=== PATIENT | male | born 1990 | race Caucasian/White ===

== ENCOUNTER → 2023-12-24 06:45 | Outpatient (REF) | payer OTHER, SELFPAY | LOC: PAVMRI 06:45 | PROVIDERS: ATTENDING PHYSICIAN Orthopaedic Surgery | DX: S83.242A Other tear of medial meniscus, current injury, left knee, initial encounter (principal) | CPT/HCPCS: 73721 ==

== ENCOUNTER → 2024-12-02 14:01 | Outpatient (REF) | payer OTHER, SELFPAY | LOC: HWRAD 14:01 | PROVIDERS: ATTENDING PHYSICIAN Internal Medicine Critical Care Medicine; FAMILY PHYSICIAN Physician Assistant Medical | DX: J45.991 Cough variant asthma (principal); R05.3 Chronic cough | CPT/HCPCS: 71046 ==

== ENCOUNTER → 2024-12-03 10:18 | Outpatient (REF) | payer OTHER, SELFPAY ==
[2024-12-03 11:41] LABS: % Basophils 0.8 % (0-2); % Eosinophils 6.8 % (0-6); % Immature Granulocytes 0.2 % (0-0.5); % Lymphocytes 48.5 % (20.5-51.1); % Monocytes 8.4 % (1.7-9.3); % Neutrophils 35.3 % (42.2-75.2); Absolute Basophils 0.1 10^3/uL (0-0.2); Absolute Eosinophils 0.4 10^3/uL (0-0.7); Absolute Monocytes 0.5 10^3/uL (0.1-0.6); Absolute Neutrophils 2.2 10^3/uL (1.4-6.5); Hemoglobin 15.4 g/dL (13.0-18.0); Mean Corp Hgb Conc. 35.8 g/dL (33.0-37.0); Mean Corpuscular Hgb 29.6 pg (27.0-31.0); Mean Corpuscular Volume 82.5 fL (80.0-94.0); Mean Platelet Volume 10.4 fL (7.4-10.4); Nucleated Red Blood Cells % 0 % (-); Platelet Count 239 10^3/uL (130-400); Red Blood Cell Count 5.21 10^6/uL (4.70-6.10); Red Cell Dist. Width 11.8 % (11.5-14.5); White Blood Cell Count 6.2 10^3/uL (4.8-10.8)
== END ==
LOC: HWLAB 10:18
PROVIDERS: ATTENDING PHYSICIAN Internal Medicine Critical Care Medicine; FAMILY PHYSICIAN Physician Assistant Medical
DX: J45.991 Cough variant asthma (principal); R05.3 Chronic cough
CPT/HCPCS: 36415; 82785; 85025

== ENCOUNTER → 2025-09-09 12:32 | Outpatient (REF) | payer OTHER, SELFPAY | LOC: HWRAD 12:32 | PROVIDERS: ATTENDING PHYSICIAN Physician Assistant; FAMILY PHYSICIAN Physician Assistant Medical | DX: R10.9 Unspecified abdominal pain (principal) | CPT/HCPCS: 76700 ==

== ENCOUNTER 2025-10-26 13:20 | Inpatient (IN) | payer OTHER, SELFPAY ==
[2025-10-26 10:49] VITALS: BP 126/85
[2025-10-26 11:05] LABS: Hematocrit 43.3 % (39.0-52.0); Hemoglobin 15.3 g/dL (13.0-18.0); Mean Corp Hgb Conc. 35.3 g/dL (33.0-37.0); Mean Corpuscular Volume 83.1 fL (80.0-94.0); Nucleated Red Blood Cells % 0 % (-); Platelet Count 247 10^3/uL (130-400); Red Cell Dist. Width 11.6 % (11.5-14.5)
--- NOTE | 2025-10-26 11:16 | ED.GENMED ---
History of Present Illness
General
Chief Complaint: Abdominal Pain
Time Seen by Provider: 10/26/25 11:15
History of Present Illness
History of Present Illness:
FOCUSED PAST MEDICAL HISTORY
- Asthma
REVIEW OF OLD RECORDS
- The patient had pulmonary function test in 2022
Note:
CHIEF COMPLAINT(S)
Severe abdominal pain
HISTORY OF PRESENT ILLNESS
The patient is a 35-year-old male who presents to the emergency department with complaints of severe abdominal pain. The patient reports that the symptoms began with mild discomfort yesterday, but intensified significantly today, rating the pain as
10 out of 10 in severity. The pain is described as horrific, and the patient notes an inability to find a comfortable position, stating, 'I cant sit down, I cant lay down, nothings comfortable.' The patient also experiences vomiting, claiming there
is nothing left inside. He reports being unable to sit or lay down comfortably and compares the abdominal pain to feeling like everything is 'seized' inside.
The patient was recently started on a course of methylprednisolone (Medrol) and ciprofloxacin, which began yesterday morning. Concern is acknowledged by the patient and his accompanying support that these medications might be contributing to
gastrointestinal upset. He reports minimal food intake since starting the medications.
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
PAST MEDICAL AND SURIGICAL HISTORY
The patient denies any past abdominal surgeries or appendectomy.
ADDITIONAL HISTORY OBTAINED FROM SOURCES OTHER THAN THE PATIENT
The patient�s support person notes that he routinely has two to three bowel movements per day and recalls the previous bowel blockage was treated with laxatives which did not initially work, requiring two days of vomiting before resolution.
PHYSICAL EXAM
General: Patient appears somewhat pale and exhibits moderate distress.
Skin: Skin is somewhat cool and clammy
Abdomen: Moderate diffuse tenderness with no signs of peritoneal irritation noted.
- General: Well appearing in no distress
- HEENT: Moist oral mucosa
- Cardiovascular: No murmurs, normal heart rate, regular rhythm, No chest wall tenderness
- Pulmonary: No respiratory distress, breath sounds are clear and equal
- Abdomen: Soft with no peritoneal signs, no tenderness
- Neurologic: Excellent strength all extremities, no coordination deficits
- Psychiatric: Appropriate mental status, normal insight and judgement
- Extremities: Nontender, no edema, moves all extremities equally
PROBLEM LIST
- Acute: Severe abdominal pain, Vomiting, Medication-associated gastrointestinal discomfort
- Chronic: History of bowel obstruction
PLAN
1. Administer analgesics to manage severe pain.
2. Provide antiemetic medication for vomiting.
3. Initiate intravenous hydration therapy.
4. Order a computed tomography (CT) scan of the abdomen to further investigate the cause of the pain.
DIFFERENTIAL DIAGNOSIS
The Differential Diagnosis includes, in no particular order and is not limited to:
1. Bowel obstruction
2. Appendicitis
3. Gastroenteritis
4. Peptic ulcer disease
5. Mesenteric ischemia
6. Diverticulitis
7. Renal colic
8. Pancreatitis
9. Gastroesophageal reflux disease
10. Medication-induced gastritis
RADIOLOGY
- CT abdomen pelvis obtained which shows evidence of pancreatitis
LABS
- White count 12.1, normal chemistries, lipase greater than 4000
SUMMARY OF ENCOUNTER
The patient, a 35-year-old male, presented to the emergency department with severe abdominal pain and vomiting. A history of recent initiation of methylprednisolone and ciprofloxacin was noted, with concerns about medication-induced gastrointestinal
upset. A similar incident was reported in the past, possibly due to a bowel blockage. During the encounter, it was identified that the patients lipase levels were elevated, indicating pancreatitis. The possibility of medication-induced pancreatitis
was discussed since alcohol and gallstone pancreatitis were ruled out based on the patients history and lab work. The patient was advised that pancreatitis often requires hospital admission for bowel rest, IV hydration, and pain management.
DISPOSITION
Admit
ASSESSMENT
The patient is experiencing acute pancreatitis, likely medication-induced given the recent start of methylprednisolone and ciprofloxacin.
EMERGENCY TREATMENTS ADMINISTERED
Fluid resuscitation and pain control were initiated in the emergency department.
PLAN
The plan is to admit the patient for hospital observation with bowel rest and to continue intravenous hydration to manage pancreatitis. The patient will undergo a CT scan to ensure there are no other alarming conditions. Continued monitoring of
lipase levels and clinical symptoms will be conducted.
INDEPENDENT REVIEW OF LABS AND INTERPRETATION OF TESTS
My independent review of Lipase is elevated, consistent with pancreatitis. Liver function tests appeared normal, ruling out gallstone pancreatitis.
MEDICAL DECISION MAKING
- Number and Complexity of Problems Addressed: Chronic conditions affecting care, history of bowel obstruction. Differential diagnosis includes pancreatitis, appendicitis, bowel obstruction, gastroenteritis, etc.
- Data:
- Category 1: Elevated lipase indicating pancreatitis; liver function tests reviewed, showing no abnormalities.
- Category 2: Clinical information obtained from the patients support person.
- Risk: Prescription drug management, consideration for diagnostic testing like CT scan, and inpatient admission for monitoring of pancreatitis.
DIAGNOSIS
- Pancreatitis, unspecified (ICD-10: K85.9)
- Suspected medication-induced pancreatitis (ICD-10: K85)
UPDATE
- Patient reports 10 out of 10 pain in the setting of vomiting and diarrhea
- Given the severity of his symptoms, will obtain CT imaging as well
- Lipase is markedly elevated; he denies any significant alcohol use, LFTs are normal
- Ordered 3 L of IV fluids, n.p.o., narcotic analgesia
Phy Exam
Physical Exam
Physical Exam:
See HPI
Course
Orders/Labs/Results
Orders:
Orders
10/26/25 10:53
EKG [Electrocardiogram (*1)] Urgent
Reason for Study: Abdominal Pain
EKG- Treatment ONCE
10/26/25 10:57
Complete Blood Count/With Diff Urgent
Comprehensive Metabolic Panel Urgent
Lipase Urgent
10/26/25 11:26
CT Abd/pelvis W Iv Cont Urgent
Comment:
Reason For Exam: severe diffuse abd pain, N/V/ some D
10/26/25 11:29
Famotidine [Pepcid] 20 mg IV NOW STA
HYDROmorphone [Dilaudid] 1 mg IV NOW STA
Ondansetron Injectable [Zofran] 4 mg IV NOW STA
10/26/25 11:44
0.9% Sodium Chloride 1000 ml [Nss] 1,000 ml IV BOLUS
10/26/25 12:02
HYDROmorphone [Dilaudid] 1 mg IV NOW STA
Ketorolac [Toradol] 15 mg IV NOW STA
10/26/25 12:19
0.9% Sodium Chloride 1000 ml [Nss] 1,000 ml IV BOLUS
0.9% Sodium Chloride 1000 ml [Nss] 1,000 ml IV BOLUS
10/26/25 13:01
Admit/Transfer Patient As Directed
Co-Sign Provider:
Level of Care: Inpatient admission
Assign to:: Medical/Surgical
Physician / Group: hospitalist
Diagnosis: acute pancreatitis
Reason for Hospitalization: acute pancreatitis
Expected length of stay greater than two midnights?: Yes
ELOS- Estimated Length of Stay in days: 3
I certify the patient meets the requirements for IP care: Yes
PRN Pain Medication Management As Directed
May give lesser potent ordered pain med per pt: Yes
preference::
Protocol:: Medication orders for pain may be administered in a
manner that supports deferring to patient preference
when the pt is:
- Requesting an ordered lesser potent pain medication.
Least to most potent pain medications are defined
as: acetaminophen < NSAID < tramadol < opioids
(morphine, oxycodone, hydromorphone).
- Requesting a lesser dose of the same medication IF
ORDERED.
- Requesting a less intrusive route of administration
if both routes are prescribed by the provider (PO <
IV).
10/26/25 13:03
Code Status As Directed
Resuscitation Status: Full Code
10/26/25 13:09
Urinalysis Reflex To Culture Urgent
Date Specimen was Collected: 10/26/25
Time Specimen was Collected: 10:49
Abnormal Lab Results
10/26/25
10:57
WBC 12.1 H 10^3/uL
(4.8-10.8)
Abs Immat Gran (auto) 0.1 H 10^3/uL
(0-0.05)
Absolute Neuts (auto) 8.2 H 10^3/uL
(1.4-6.5)
Absolute Monos (auto) 1.1 H 10^3/uL
(0.1-0.6)
Monocytes % 9.4 H %
(1.7-9.3)
Glucose 133 H mg/dl
(70-99)
Lipase > 4000 H* U/L
(23-300)
10/26/25 10:57
10/26/25 10:57
Vital Signs
Initial and Last Documented VS:
Initial Vital Signs
Temp Pulse Resp BP Pulse Ox
36.4 C 83 15 126/85 98
10/26/25 10:49 10/26/25 10:49 10/26/25 10:49 10/26/25 10:49 10/26/25 10:49
Last Documented Vital Signs
Temp Pulse Resp BP Pulse Ox
36.4 C 83 15 126/85 98
10/26/25 10:49 10/26/25 10:49 10/26/25 10:49 10/26/25 10:49 10/26/25 11:18
*Pulse Oximetry
SaO2: 98
Oxygen Mode of Delivery: Room air
Patient hypoxic: no
*Critical Care Note
Total Time (30-74mins, 75-104mins- exclusive of procedures): Not Applicable
ED Attending Note
-
Portions of this chart may have been created with voice recognition software.� Occasional wrong word or��sound alike� substitutions may have occurred due to the inherent limitations of voice recognition software.
Discharge Plan
Departure
Patient Disposition: Admit
Date of Disposition: 10/26/25
Time of Disposition: 12:28
Presentation/result/management discussed w/ accepting MD/DO: Hospitalist
Discharge Problem:
Acute pancreatitis
Interventions
Interventions:
*Neglect/Abuse Screening Last Done: 10/26/25 10:49
*ED COVID-19 Vaccine History Last Done: 10/26/25 10:49
*ED Influenza Vaccine History Last Done: 10/26/25 10:49
[facility] Risk Assessment Tool Last Done: 10/26/25 11:46
*Risk Screen - Suicide (C-SSRS) Last Done: 10/26/25 10:49
ZE-Rmnjxo-Tcbrbxerdl Assessment Last Done: 10/26/25 11:47
[2025-10-26 11:21] LABS: ALT (SGPT) 48 U/L (0-50); AST (SGOT) 27 U/L (17-59); Albumin 4.6 g/dl (3.5-5.0); Alkaline Phosphatase 54 U/L (38-126); Blood Urea Nitrogen 17 mg/dl (9-20); Calcium 9.4 mg/dl (8.4-10.2); Carbon Dioxide 28 mmol/L (22-30); Chloride 104 mmol/L (98-107); Glucose 133 mg/dl (70-99); Potassium 4.4 mmol/L (3.5-5.1); Sodium 138 mmol/L (135-145); Total Protein 7.5 g/dl (6.3-8.2); eGFR > 60.00
[2025-10-26] MEDS: DILAUDID 1 MG IV ×5 (11:40→22:34)
[2025-10-26] MEDS: PEPCID 20 MG IV (11:41)
[2025-10-26] MEDS: ZOFRAN 4 MG IV ×2 (11:41→14:28)
[2025-10-26] MEDS: NSS 1000 IV ×3 (11:44→13:21)
[2025-10-26 12:02] LABS: Lipase > 4000 U/L (23-300)
[2025-10-26] MEDS: TORADOL 15 MG IV (12:10)
--- NOTE | 2025-10-26 12:36 | HPS.HSE ---
Family Physician
-
Family Physician:
Chief Complaint
-
epigastric pain with nausea/vomiting
History of Present Illness
35yo M with a hx of asthma & chronic sinusitis who presents with acute epigastric pain with nausea/vomiting.
Pt reports that he began experiencing epigastric pain yesterday evening, which worsened to become 10/10 severe pain when he woke up this am. Nausea was so severe that he had multiple episodes of emesis. Also had episode of diarrhea. Denies fever.
Epigastric pain did not radiate to back but was band-like and spread to CP and pleuritic pain limiting deep breaths. Denies any unusual meals prior. Recent change to meds includes starting methylpred & cefuroxime abx, rx by ENT on 10/20 for mgmt of
sinusitis. Denies alcohol use. Denies hx of gallstones. Denies hx of hyperlipidemia. Denies hx of autoimmune dz in self or family.
States that he had a similar episode in July which lasted 2-3 days (less severe than this one) and then self-resolved. Was given laxatives as thought to be constipated. Had US on September at as part of w/u of this [place] US did not demonstrate evidence of cholecystisis or gallstones.
On presentation to ED, pt was afebrile, with HR 83, BP 126/85, satting well on RA. WBC elevated to 12.1. Lipase >4000. Remainder of CBC, CMP wnl. EKG demonstrated sinus rhythm, no ischemia. CT a/p demonstrated upper abd & peripancreatic fat
stranding c/w acute pancreatitis, without fluid collections; also noted hepatic steatosis (which was seen on 09/2025 , as well).
Pt started on IVF (s/p 3L NSS), analgesia (s/p 2mg dilaudid, 15mg toradol), & antiemetics (4mg zofran).
On exam, pt stating that pain improved s/p dilaudid but not fully resolved. No longer vomiting but still mildly nauseated with no appetite. No additional sx to report. Understands plan for admission.
Medical History
Past Medical History
Past Medical History: Reports Asthma and Other (sinusitis)
Past Surgical History: Reports None
Social History
Tobacco: Non-smoker
Alcohol: None
Family History
Family History: Not pertinent
Allergies / Home Medications
Allergies reflects when Allergies were last updated in [employer].
Home Medications with original date entered in [employer]
Allergy/Medication List:
NKDA
Review of Systems
-
History Source: Patient
Constitutional: Reports No Symptoms
Respiratory: Reports Other (pleuritic pain)
Cardiac: Reports Chest Pain
Abdomen/GI: Reports Abdominal Pain, Nausea, Vomiting and Diarrhea
Musculoskeletal: Reports No Symptoms
Skin: Reports No Symptoms
Psych: Reports No Symptoms
Physical Exam
Vital Signs
Vital Signs
Temp Pulse Resp BP Pulse Ox
97.5 F 83 15 126/85 98
10/26/25 10:49 10/26/25 10:49 10/26/25 10:49 10/26/25 10:49 10/26/25 11:18
Physical Exam
General: Well Developed, Well Nourished, Appears in Distress (mild) and Pain
HEENT: NormoCephalic, Anicteric and Moist mucous membranes
Respiratory: Clear and Non Labored Respirations
Cardiac: Regular Rhythm
GI: Soft, Non Distended and Tender (mildly tender to palpation in bilat upper quadrants )
Musculoskeletal: No Edema
Skin: Warm and Dry
Neuro: Awake, Alert and Oriented
Psych: Calm
Laboratory Results
-
10/26/25 10:57
10/26/25 10:57
Laboratory Results
Total Bilirubin 0.7 mg/dl (0.2-1.3) 10/26/25 10:57
AST 27 U/L (17-59) 10/26/25 10:57
ALT 48 U/L (0-50) 10/26/25 10:57
Alkaline Phosphatase 54 U/L (38-126) 10/26/25 10:57
Lipase > 4000 U/L (23-300) H* 10/26/25 10:57
Data Reviewed
-
Critical Care Time (in minutes): 45
CT Scan: Image Personally Visualized and interpreted and Report Reviewed by me
Ultrasound: Report Reviewed by me
Medical Tests (Nuc Med, Echo, EKG etc): Report Reviewed by me
Lab Data: Labs Reviewed by me
Impression/Plan
-
35yo M with a hx of asthma & chronic sinusitis who presents with acute epigastric pain with nausea/vomiting, found to have lipase>[address] a/p c/w acute pancreatitis.
#Acute pancreatitis, likely idiopathic
Patient with acute epigastric pain and nausea/vomiting, found to have elevated white count 12.1, lipase greater than 4000, and CT A/P consistent with acute pancreatitis. Patient without known trigger�denies alcohol use, denies history of
hyperlipidemia, denies autoimmune conditions, denies smoking, taking no culprit drugs, calcium within normal limits, 09/2025 ultrasound demonstrated no gallstones. Of note, patient notes that he had a similar episode in July 2025, which self
resolved. Patient may have underlying hypertriglyceridemia given evidence of CAMPBELL on CT and ultrasound.
- LR fluids at 200 mL/hour
- Analgesia: 5 mg oxycodone for moderate pain, 10 mg oxycodone for severe pain, 0.5 mg dilaudid for breakthrough pain
- 4 mg IV Zofran as needed
- N.p.o.
- Check lipid panel
- GI consult for eval, given prior episode July
#Chronic
#CAMPBELL�patient should follow-up with PCP, identified on imaging in September and October 2025
#Sinusitis�patient following up with ENT, holding methylpred course (today last day) & cefuroxime course while inpatient
#Asthma�continue home inhaler
#Global
- DVT PPx: Lovenox
- Diet: NPO
- Code: Full
- Dispo: To home, pending clinical improvement
[2025-10-26 13:18] LABS: Urine Character Clear (Clear)
[2025-10-26] MEDS: DILAUDID 0.5 MG IV ×2 (14:05→17:19)
[2025-10-26 15:02] VITALS: BMI 33.9
--- NOTE | 2025-10-26 15:20 | CM ---
Chart reviewed and spoke with pt and Yu at ED bedside
Lives in [address] with
Independent
[employer]
no DME
PCP Herbert Solorzano
[facility] on
no hx of VN nor SNF
DCP is to return home no needs
can drive him home
CM will continue to follow up for any dcp needs
[2025-10-26] MEDS: COMPAZINE 10 MG IV ×2 (15:31→22:35)
--- NOTE | 2025-10-26 16:17 | CON.GI ---
Consultation
-
Date/Time Consultation Requested: 10/26/2025
Date/Time Consultation Performed: 10/26/2025
Requesting Provider:
Performing Provider:
Reason for Consultation: pancreatitis
Medical History
Chief Complaint / HPI
Chief Complaint: abdominal pain
History of Present Illness:
This is a 35-year-old male with past medical history significant for recurrent sinusitis and asthma who was in his usual state of health up until yesterday when he started to experience epigastric pain and also had an episode of diarrhea and was
having nausea which progressively worsened today and was having multiple episodes of vomiting and presented to the emergency room. Pain is mostly in epigastric area with no radiation and worsened with movement and eating. He had no fevers or
chills. No further episodes of diarrhea. 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
and lasted for about 2 to 3 days and then resolved. In September after he saw his PCP had an ultrasound to evaluate and was noted to have hepatic steatosis and multiple gallbladder polyps. On admission he was noted to have elevated lipase level and
CT is consistent with acute pancreatitis he has been started on IV fluids and pain control and Zofran. His triglyceride levels are pending, his calcium level is normal. He also was recently treated with prednisone and cefuroxime for sinus infection
which was started on 10/20/2025 by his ENT and is being evaluated for possible surgery for recurrent sinusitis. He denies any recent alcohol use he drinks he drinks less than 1 drink of wine once a week. No family history of pancreatitis or
pancreatic cancer. Prior to this episode he denies any symptoms of reflux diarrhea or constipation. He does take creatine daily and also takes protein supplements for muscle building.
Past Medical History
Past Medical History: Other (Asthma, recurrent sinusitis)
Past Surgical History: None
Social History
Tobacco: Non-Smoker
Alcohol: Other (A glass of wine less than once a week)
Drug: None
Personal:
Living: With Family
Employment: Employed
Family History
Family History: Other (No family history of pancreatitis or colon cancer)
Allergies / Home Medications
Allergy/AdvReac Type Severity Reaction Status Date / Time
No Known Allergies Allergy Unverified 10/26/25 10:59
�Medication �Instructions �Recorded
Creatine 5 mg PO DAILY 10/26/25
cefuroxime axetil 500 mg tablet 500 mg PO BID 10/26/25
fluticasone 250 mcg-salmeterol 50 1 inh inhalation R BID 10/26/25
mcg/dose blistr powdr for
inhalation (Advair Diskus)
magnesium 1 tab PO DAILY 10/26/25
methylprednisolone 4 mg tablets in 0 mg PO PER PKG DIR 10/26/25
a dose pack
therapeutic multivitamin 1 tab PO DAILY 10/26/25
Review of Systems
-
All other systems: A 12 pt ROS was Negative except as stated above in HPI
Vital Signs
Temp Pulse Resp BP Pulse Ox
97.5 F 83 15 126/85 98
10/26/25 10:49 10/26/25 10:49 10/26/25 10:49 10/26/25 10:49 10/26/25 11:18
Physical Exam
Exam
General: Pain
HEENT: Normocephalic
Respiratory: Clear
Cardiac: S1/S2 and Regular Rhythm
GI: Soft, Non Distended, Normal Bowel Sounds and Tender (epigastric)
Musculoskeletal: No Clubbing
Skin: Warm
Neuro: Awake, Alert and Oriented
Psych: Calm
Results
WBC 12.1 10^3/uL (4.8-10.8) H 10/26/25 10:57
Hgb 15.3 g/dL (13.0-18.0) 10/26/25 10:57
Hct 43.3 % (39.0-52.0) 10/26/25 10:57
MCV 83.1 fL (80.0-94.0) 10/26/25 10:57
Plt Count 247 10^3/uL (130-400) 10/26/25 10:57
Absolute Neuts (auto) 8.2 10^3/uL (1.4-6.5) H 10/26/25 10:57
Sodium 138 mmol/L (135-145) 10/26/25 10:57
Potassium 4.4 mmol/L (3.5-5.1) 10/26/25 10:57
Chloride 104 mmol/L (98-107) 10/26/25 10:57
Carbon Dioxide 28 mmol/L (22-30) 10/26/25 10:57
BUN 17 mg/dl (9-20) 10/26/25 10:57
Creatinine 1.0 mg/dL (0.7-1.3) 10/26/25 10:57
Calcium 9.4 mg/dl (8.4-10.2) 10/26/25 10:57
Total Bilirubin 0.7 mg/dl (0.2-1.3) 10/26/25 10:57
AST 27 U/L (17-59) 10/26/25 10:57
ALT 48 U/L (0-50) 10/26/25 10:57
Alkaline Phosphatase 54 U/L (38-126) 10/26/25 10:57
Lipase > 4000 U/L (23-300) H* 10/26/25 10:57
Diagnostic Image Results:
10/26/2025 CT abd/pelvis
IMPRESSION:
1. Upper abdominal and peripancreatic fat stranding suspicious for acute pancreatitis. No fluid collections appreciated. Correlation with lipase recommended.
2. Hepatic steatosis.
3. No radiopaque gallstones. No urinary tract calculi or hydronephrosis. Unremarkable appendix.
4. Additional findings above.
10/09/2025 US abdomen
IMPRESSION:
1. Increased echogenicity in the liver, compatible with underlying hepatocellular disease, which most commonly relates to fatty infiltration of the liver.
2. Small gallbladder polyps. Consider optional follow-up gallbladder ultrasound in one year.
Prior GI Procedures:
EGD: none
Colonoscopy: none
Assessment / Plan
-
This is a 35-year-old male with past medical history of recurrent sinus infections, asthma presented with symptoms of nausea, vomiting and epigastric pain with 1 episode of diarrhea yesterday labs and CT findings are consistent with acute
pancreatitis first episode
1. Acute pancreatitis could be related to possible gallstones although no obvious gallstones were noted on the CT on prior ultrasound in September he was noted to have gallbladder polyps but no stones were noted at that time but because of the
multiple polyps stones could have been missed. Will get an MRI with MRCP although his LFTs currently are normal less likely choledocholithiasis. Continue supportive care with IVF lactated ringers,, Zofran as needed and pain control as needed.
calcium level was normal, triglyceride level is pending. Will also get IgG4 level although doubt autoimmune pancreatitis. Will schedule him for an endoscopic ultrasound if the MRI with MRCP is negative. He was recently on cefuroxime and
prednisone doubt that this was the cause of his pancreatitis he also takes protein supplements and creatine hold for now.
2. He was also noted to have hepatic steatosis on imaging, currently normal LFTs. Most likely related to MASH. Encouraged weight loss and healthy Mediterranean diet and consider ultrasound elastography as outpatient.
-
-
Thank you for consultation and allowing me to participate in the patient's care. Please call the television engineering teacher GI physician during the after hours with any questions or concerns.
[2025-10-26 16:31] VITALS: BP 145/53; BMI 33.8
[2025-10-26] MEDS: LR 1000 IV ×2 (17:14→23:41)
[2025-10-26] MEDS: LOVENOX 40 MG SC (17:23)
[2025-10-26 17:50] LABS: HDL Cholesterol 47 mg/dl; LDL Cholesterol, Calculated 58 mg/dl; Very Low Density Lipoprotein 16 mg/dl (0-30)
[2025-10-26] MEDS: ADVAIR HFA 115/21 MCG INHALER INH (19:12)
[2025-10-26] MEDS: DESENEX/MITRAZOL/ZEASORB TOPICAL (22:24)
[2025-10-26 23:17] VITALS: BP 152/94
[2025-10-27] MEDS: LR 1000 IV ×4 (03:59→19:45)
[2025-10-27] MEDS: COMPAZINE 10 MG IV ×3 (06:04→20:51)
[2025-10-27] MEDS: DILAUDID 1 MG IV ×2 (06:04→09:21)
[2025-10-27 07:41] VITALS: BP 166/81
--- NOTE | 2025-10-27 07:45 | W.PN.HOSP.TC ---
Today's Communication/Plan
-
- Advance diet to clear liquids
- IgG4 level pending for autoimmune w/u
- LR fluids at 200 mL/hour
- Analgesia: 5 mg oxycodone for moderate pain, 10 mg oxycodone for severe pain, 0.5 mg dilaudid for breakthrough pain, 1mg dilaudid for severe breakthrough pain
- Antiemetics: 4 mg IV Zofran PRN, 10mg q6hr compazine PRN
- Bowel regimen
- Plan for outpatient endoscopic US
- GI following, appreciate recs
Assessment / Plan
Assessment / Plan
35yo M with a hx of asthma & chronic sinusitis who presents with acute epigastric pain with nausea/vomiting, found to have lipase>[address] a/p c/w acute pancreatitis.
#Acute pancreatitis, likely idiopathic
Patient with acute epigastric pain and nausea/vomiting, found to have elevated white count 12.1, lipase greater than 4000, and CT A/P consistent with acute pancreatitis. Patient without known trigger�denies alcohol use, denies history of
hyperlipidemia, denies autoimmune conditions, denies smoking, taking no culprit drugs, calcium within normal limits, 09/2025 ultrasound demonstrated no gallstones (did demonstrate polyps). Of note, patient notes that he had a similar episode in
July 2025, which self resolved. Although pt with evidence of CAMPBELL on CT and ultrasound, lipid panel 10/26 returned all wnl. MRI w MRCP 10/26: 'Mild acute interstitial pancreatitis. No bile duct dilatation or evidence or choledocholithiasis.
Mild hepatomegaly. Fatty infiltration. Findings suspicious for 3-4 tiny (2 mm) gallbladder polyps.'
- Advance diet to clear liquids
- IgG4 level pending for autoimmune w/u
- LR fluids at 200 mL/hour
- Analgesia: 5 mg oxycodone for moderate pain, 10 mg oxycodone for severe pain, 0.5 mg dilaudid for breakthrough pain, 1mg dilaudid for severe breakthrough pain
- Antiemetics: 4 mg IV Zofran PRN, 10mg q6hr compazine PRN
- Bowel regimen
- Plan for outpatient endoscopic US
- GI following, appreciate recs
#Chronic
#CAMPBELL�patient should follow-up with PCP, identified on imaging in September and October 2025
#Sinusitis�patient following up with ENT, holding methylpred course (today last day) & cefuroxime course while inpatient
#Asthma�continue home inhaler
#Global
- DVT PPx: Lovenox
- Diet: NPO
- Code: Full
- Dispo: To home, pending clinical improvement
Anticipated Discharge: 24 - 48 hours
Subjective/Interval History
-
Date of Service: October 27, 2025
Good spirits this am. Pain & nausea well-controlled w current regimen. Denies any emesis today.
Discussed CAMPBELL. Discussed plan for potential endo US and for ongoing NPO/fluids.
Objective Data
-
Labs:
Laboratory Results
10/27/25 10/27/25
07:39 07:40
WBC Pending
Hgb Pending
Hct Pending
Plt Count Pending
Sodium Pending
Potassium Pending
Chloride Pending
Carbon Dioxide Pending
BUN Pending
Creatinine Pending
Glucose Pending
Calcium Pending
Total Bilirubin Pending
AST Pending
ALT Pending
Alkaline Phosphatase Pending
Vital Signs:
Vital Signs
Temp Pulse Resp BP Pulse Ox
97.7 F 43 16 110/49 97
10/27/25 07:41 10/27/25 07:41 10/27/25 07:41 10/27/25 07:41 10/27/25 07:41
I&O
10/26/25 10/27/25 10/28/25
06:59 06:59 06:59
Intake Total 2400 / 2400
Balance 2400 / 2400
Review of Systems
-
History Source: Patient
Constitutional: Reports No Appetite
Respiratory: Reports No Symptoms
Cardiac: Reports No Symptoms
Abdomen/GI: Reports Abdominal Pain (improving) and Nausea
Musculoskeletal: Reports No Symptoms
Skin: Reports No Symptoms
Neuro: Reports No Symptoms
Physical Exam
-
General: Well Developed, Well Nourished and No Apparent Distress
HEENT: Normocephalic and Atraumatic
Respiratory: Clear to Auscultation and Non Labored Respirations
Cardiac: Regular Rhythm
GI: Soft, Nontender and Nondistended
Musculoskeletal: No Edema
Skin: Warm and Dry
Neuro: Awake, Alert and Oriented
Psych: Calm
Data Reviewed
-
Total Time Spent with Patient (in minutes): 10
Critical Care Time (in minutes): 35
MRI: Report Reviewed by me
Labs: Labs Reviewed by me
[2025-10-27 08:03] LABS: Hematocrit 38.0 % (39.0-52.0); Hemoglobin 13.6 g/dL (13.0-18.0); Mean Corp Hgb Conc. 35.8 g/dL (33.0-37.0); Mean Corpuscular Volume 82.6 fL (80.0-94.0); Nucleated Red Blood Cells % 0 % (-); Platelet Count 210 10^3/uL (130-400); Red Cell Dist. Width 11.6 % (11.5-14.5)
[2025-10-27] MEDS: ADVAIR HFA 115/21 MCG INHALER 2 PUFF INH ×2 (08:13→18:17)
[2025-10-27 08:18] LABS: ALT (SGPT) 37 U/L (0-50); AST (SGOT) 21 U/L (17-59); Albumin 3.6 g/dl (3.5-5.0); Alkaline Phosphatase 44 U/L (38-126); Blood Urea Nitrogen 11 mg/dl (9-20); Calcium 8.8 mg/dl (8.4-10.2); Carbon Dioxide 27 mmol/L (22-30); Chloride 104 mmol/L (98-107); Estimated Creatinine Clearance > 125 ml/min; Glucose 94 mg/dl (70-99); Potassium 4.1 mmol/L (3.5-5.1); Sodium 136 mmol/L (135-145); Total Protein 6.3 g/dl (6.3-8.2); eGFR > 60.00
[2025-10-27 08:33] LABS: Lipase > 4000 U/L (23-300)
[2025-10-27] MEDS: ZOFRAN 4 MG IV ×2 (09:20→15:57)
[2025-10-27] MEDS: DESENEX/MITRAZOL/ZEASORB 1 APPLIC TOPICAL (09:23)
--- NOTE | 2025-10-27 11:15 | W.PN.GI.CBS2 ---
Today's Communication / Plan
-
Results of MRI d/w pt
Adv to [facility]
Add miralax daily
Above d/w primary team. Will follow with you
Assessment / Plan
-
This is a 35-year-old male with past medical history of recurrent sinus infections, asthma presented with symptoms of nausea, vomiting and epigastric pain with 1 episode of diarrhea yesterday labs and CT findings are consistent with acute
pancreatitis first episode
Impression
- Acute pancreatitis
Denies ETOH, suspect biliary but negative imaging
TG and Ca wnl
- Gallbladder polyps
- Recent sinus infection
- Obesity
- Fatty liver
Recommendations
- Results of MRI d/w pt no active signs of choledocholithiasis
- No indication for ERCP at this juncture. Could consider EUS as outpatient basis
- Adv to [facility] today and ultimately to low fat as tolerates
- C/w IVF
- Continue to avoid ETOH
- Pain management per primary team
- Recommend abd US with elastography 6mo to follow up on GB polyps and fatty liver
Will follow with you
Subjective
Subjective
Date of Service: October 27, 2025
His abd pain is improved to 4 out of 10. No BM since 2-3 days ago. Denies nausea/vomiting. Eager for diet
Objective
Data Reviewed
Laboratory Data:
Laboratory Results
10/27/25 07:40
10/27/25 07:39
Laboratory Results
Total Bilirubin 0.8 mg/dl (0.2-1.3) 10/27/25 07:39
AST 21 U/L (17-59) 10/27/25 07:39
ALT 37 U/L (0-50) 10/27/25 07:39
Alkaline Phosphatase 44 U/L (38-126) 10/27/25 07:39
Lipase > 4000 U/L (23-300) H* 10/27/25 07:39
Vital Signs and I&O:
Vital Signs
Temp Pulse Resp BP Pulse Ox
98.4 F 65 16 166/81 96
10/27/25 07:41 10/27/25 08:17 10/27/25 08:17 10/27/25 07:41 10/27/25 08:17
I&O
10/26/25 10/27/25 10/28/25
06:59 06:59 06:59
Intake Total 2400 / 2400
Balance 2400 / 2400
Physical Exam
Physical Exam
GEN: No acute distress, conversant, pleasant
HEENT: anicteric, extraocular movements intact, clear oropharynx without exudates
GI: soft, obese non-distended, diffusely mild tender to palpation, normal active bowel sounds, no hepatosplenomegaly
EXT: warm, well perfused, trace edema bilaterally
NEURO: AAOx3, non-focal
[2025-10-27] MEDS: MIRALAX 17 GRAMS PO (12:31)
[2025-10-27 12:36] VITALS: BP 132/66
[2025-10-27] MEDS: DILAUDID 0.5 MG IV ×3 (12:42→20:51)
[2025-10-27 15:32] VITALS: BP 160/78
[2025-10-27] MEDS: LOVENOX 40 MG SC (17:18)
[2025-10-27 17:21] VITALS: BP 141/81
[2025-10-27] MEDS: SENOKOT-S 1 TABLET PO (20:51)
[2025-10-27] MEDS: DESENEX/MITRAZOL/ZEASORB TOPICAL (21:26)
[2025-10-27 23:02] VITALS: BP 167/91
[2025-10-28] MEDS: LR 1000 IV ×2 (00:41→05:23)
[2025-10-28 03:08] VITALS: BP 141/99
--- NOTE | 2025-10-28 07:19 | W.PN.HOSP.TC ---
Addendum entered and electronically signed by Jace Barfield MD 10/28/25 13:13:
I saw and evaluated the patient. I reviewed the resident�s note and agree with findings and plan as documented in the resident�s note.
Acute pancreatitis - idiopathic
- Given with acute left-sided abdominal pain nausea vomiting
- CT abdomen pelvis showing peripancreatic fat stranding
- MRI abd showing gallbladder polyp and pancreatic inflammation.
- Elevated lipase above 4000 in ER
- Pain has resolved and patient able to tolerate low-fat diet
- Patient to be discharged home today
Acute sinusitis
- Patient was provided 21-day course of cefdinir exam, day 18 already will hold
- Symptomatic care if needed
Interdigital tinea pedis
- topical antifungal to be used
Original Note:
Today's Communication/Plan
-
- low fat diet today
- discharge today
Assessment / Plan
Assessment / Plan
35yo M with a hx of asthma & chronic sinusitis who presents with acute epigastric pain with nausea/vomiting, found to have lipase>[address] a/p c/w acute pancreatitis.
#Acute pancreatitis, likely idiopathic
Patient with acute epigastric pain and nausea/vomiting, found to have elevated white count 12.1, lipase greater than 4000, and CT A/P consistent with acute pancreatitis. Patient without known trigger�denies alcohol use, denies history of
hyperlipidemia, denies autoimmune conditions, denies smoking, taking no culprit drugs, calcium within normal limits, 09/2025 ultrasound demonstrated no gallstones (did demonstrate polyps). Of note, patient notes that he had a similar episode in
July 2025, which self resolved. Although pt with evidence of CAMPBELL on CT and ultrasound, lipid panel 10/26 returned all wnl. MRI w MRCP 10/26: 'Mild acute interstitial pancreatitis. No bile duct dilatation or evidence or choledocholithiasis.
Mild hepatomegaly. Fatty infiltration. Findings suspicious for 3-4 tiny (2 mm) gallbladder polyps.'
Today - AVSS, BP 141/99; not requiring pain meds since 9pm last night
- Advance diet to low fat today
- LR fluids at 200 mL/hour - can discontinue today
- Analgesia: 5 mg oxycodone for moderate pain, 10 mg oxycodone for severe pain, 0.5 mg dilaudid for breakthrough pain, 1mg dilaudid for severe breakthrough pain
- Antiemetics: 4 mg IV Zofran PRN, 10mg q6hr compazine PRN
- Scheduled bowel regimen of miralax & docusate/senna
- Hydralazine 10mg q4hr PRN for elevated BP, likely spiking 2/2 discomfort
- IgG4 level pending for autoimmune w/u
- Plan for outpatient endoscopic US
- GI following, appreciate recs
#Chronic
#CAMPBELL�patient should follow-up with PCP, identified on imaging in September and October 2025
#Sinusitis�patient following up with ENT, holding methylpred course (today last day) & cefuroxime course while inpatient
#Asthma�continue home inhaler
#Global
- DVT PPx: Lovenox
- Diet: clear liquids, may advance to low fat today
- Code: Full
- Dispo: To home, likely EOD today
Anticipated Discharge: Today
Subjective/Interval History
-
Date of Service: October 28, 2025
Pt feeling well this am. In good spirits. States that he has not used any pain meds since 9pm last night, has not required. Has been eating clear liquid diet without n/v. Still a tiny bit sore in abdomen but has been able to walk around the room
without issue. States that he feels he will have a BM soon.
Objective Data
-
Labs:
Laboratory Results
10/28/25
06:00
WBC Pending
Hgb Pending
Hct Pending
Plt Count Pending
Sodium Pending
Potassium Pending
Chloride Pending
Carbon Dioxide Pending
BUN Pending
Creatinine Pending
Glucose Pending
Calcium Pending
Total Bilirubin Pending
AST Pending
ALT Pending
Alkaline Phosphatase Pending
Vital Signs:
Vital Signs
Temp Pulse Resp BP Pulse Ox
98.0 F 98 18 141/99 95
10/28/25 03:08 10/28/25 03:08 10/28/25 03:08 10/28/25 03:08 10/28/25 03:08
I&O
10/27/25 10/28/25 10/29/25
06:59 06:59 06:59
Intake Total 2400 / 2400 6000 / 6000
Balance 2400 / 2400 6000 / 6000
Review of Systems
-
History Source: Patient
Constitutional: Reports No Symptoms
EENT: Reports No Symptoms Reported
Respiratory: Reports No Symptoms
Cardiac: Reports No Symptoms
Abdomen/GI: Reports Abdominal Pain (very mild)
Musculoskeletal: Reports No Symptoms
Skin: Reports No Symptoms
Neuro: Reports No Symptoms
Physical Exam
-
General: Well Developed, Well Nourished and No Apparent Distress
HEENT: Normocephalic and Atraumatic
Respiratory: Non Labored Respirations
Cardiac: Regular Rhythm
GI: Soft, Nontender and Nondistended
Skin: Warm and Dry
Neuro: Awake, Alert and Oriented
Psych: Calm
Data Reviewed
-
Total Time Spent with Patient (in minutes): 10
Critical Care Time (in minutes): 35
Labs: Labs Reviewed by me
[2025-10-28 07:20] VITALS: BP 127/71
[2025-10-28] MEDS: ADVAIR HFA 115/21 MCG INHALER 2 PUFF INH (08:14)
[2025-10-28] MEDS: MIRALAX 17 GRAMS PO (08:32)
[2025-10-28] MEDS: SENOKOT-S 1 TABLET PO (08:32)
[2025-10-28] MEDS: DESENEX/MITRAZOL/ZEASORB TOPICAL (08:35)
[2025-10-28 09:17] LABS: Hematocrit 42.7 % (39.0-52.0); Hemoglobin 15.0 g/dL (13.0-18.0); Mean Corp Hgb Conc. 35.1 g/dL (33.0-37.0); Mean Corpuscular Volume 83.4 fL (80.0-94.0); Nucleated Red Blood Cells % 0 % (-); Platelet Count 234 10^3/uL (130-400); Red Cell Dist. Width 11.6 % (11.5-14.5)
[2025-10-28 09:33] LABS: ALT (SGPT) 35 U/L (0-50); AST (SGOT) 22 U/L (17-59); Albumin 4.4 g/dl (3.5-5.0); Alkaline Phosphatase 46 U/L (38-126); Blood Urea Nitrogen 8 mg/dl (9-20); Calcium 9.7 mg/dl (8.4-10.2); Carbon Dioxide 29 mmol/L (22-30); Chloride 99 mmol/L (98-107); Estimated Creatinine Clearance > 125 ml/min; Glucose 95 mg/dl (70-99); Potassium 4.3 mmol/L (3.5-5.1); Sodium 136 mmol/L (135-145); Total Protein 7.4 g/dl (6.3-8.2); eGFR > 60.00
--- NOTE | 2025-10-28 09:38 | W.PN.GI.CBS2 ---
Today's Communication / Plan
-
Low-fat diet as tolerated
Follow-up with GI as outpatient
Assessment / Plan
-
This is a 35-year-old male with past medical history of recurrent sinus infections, asthma presented with symptoms of nausea, vomiting and epigastric pain with 1 episode of diarrhea yesterday labs and CT findings are consistent with acute
pancreatitis first episode
Impression
- Acute pancreatitis
Denies ETOH, suspect biliary but negative imaging
TG and Ca wnl
- Gallbladder polyps
- Recent sinus infection
- Obesity
- Fatty liver
Recommendations
Clinically doing well. No abdominal pain. Tolerating liquid diet
- Low-fat diet as tolerated
- Etiology of pancreatitis unknown. Could consider EUS as outpatient basis
-Follow-up IgG4
- Continue to avoid ETOH
- Recommend abd US with elastography 6mo to follow up on GB polyps and fatty liver
- Follow-up with GI as outpatient -
- will s/o.
Total Time Spent with Patient (in minutes): 35
Subjective
Subjective
Date of Service: October 28, 2025
Denies any abdominal pain. Tolerating liquid diet. Had a BM
Objective
Data Reviewed
Laboratory Data:
Laboratory Results
10/28/25 08:26
10/28/25 08:26
Laboratory Results
Total Bilirubin 1.2 mg/dl (0.2-1.3) 10/28/25 08:26
AST 22 U/L (17-59) 10/28/25 08:26
ALT 35 U/L (0-50) 10/28/25 08:26
Alkaline Phosphatase 46 U/L (38-126) 10/28/25 08:26
Lipase > 4000 U/L (23-300) H* 10/27/25 07:39
Vital Signs and I&O:
Vital Signs
Temp Pulse Resp BP Pulse Ox
98.1 F 84 16 127/71 94
10/28/25 07:20 10/28/25 08:17 10/28/25 08:17 10/28/25 07:20 10/28/25 08:17
I&O
10/27/25 10/28/25 10/29/25
06:59 06:59 06:59
Intake Total 2400 / 2400 6000 / 6000
Balance 2400 / 2400 6000 / 6000
Physical Exam
Physical Exam
GI: Soft, Non Distended and Non Tender
[2025-10-28] MEDS: LR IV (11:42)
--- NOTE | 2025-10-28 11:44 | W.DCSUMMARY ---
Documented by User: Pastora Woodall MD, Resident 10/28/25 12:17
Discharge Summary
Discharge Data
Date of Admission: 10/26/25
Date of Discharge: 10/28/25
-
Pending Results: Yes
Additional Pending Results:
IgG4 level pending for autoimmune w/u
Hospital Course
Discharging Physician : Jace Barfield MD ; Pastora Woodall MD
Disposition : home
Primary care physician : RADHA Ferrari
Principal Discharge diagnosis : acute idiopathic pancreatitis, CAMPBELL
Chronic Discharge diagnosis : asthma, sinusitis
Hospital Course :
35yo M with a hx of asthma & chronic sinusitis who presented 10/26 with acute epigastric pain with nausea/vomiting, found to have lipase>[address] a/p c/w acute pancreatitis.
Patient presented with acute epigastric pain and nausea/vomiting that began the prior evening and worsened to severe intensity in the morning. Patient endorses nausea and vomiting at home. On presentation to the ED, patient was afebrile but with
leukocytosis to 12.2, and lipase elevated greater than 4000. CTAP with IV contrast was consistent with acute pancreatitis. Follow-up MRI abdomen was also consistent with acute pancreatitis. Both imaging studies identified gallbladder polyps, but
no gallstones. Prior abdominal ultrasound in September 2025 demonstrated no gallstones. Workup for etiology of acute pancreatitis was negative: Lipid panel within normal limits, Calcium within normal limits, negative gallstones, no culprit
medication use recently, no family or personal history of autoimmune disease (although IgG4 still pending at time of discharge). Most likely etiology is idiopathic. Patient was taking cefuroxime and methylpred for sinusitis, which been prescribed
by his ENT outpatient on 10/1218. These medications were held while patient was hospitalized. However, they were not thought to be triggers of the pancreatitis episode. Patient was seen by gastroenterology while inpatient, who agreed with likely
idiopathic etiology and requested outpatient follow-up.
Patient was admitted, kept n.p.o., started on lactated ringer fluids, and given supportive analgesia and antiemetics. On 10/27, patient was able to advance his diet to clear liquids. On 10/28, patient was able to advance his diet to low-fat.
Patient did not require any pain medications as of 9PM on 10/27. Patient denied any nausea/vomiting on 10/28. Patient remained afebrile. Patient was cleared for discharge on 10/28, with instructions for utilization of extra strength Tylenol as
needed and adherence to a low-fat diet.
Of note, both abdominal imaging studies obtained during this admission demonstrated hepatic steatosis. Patient should follow-up with PCP about management.
Patient was directed to follow-up with gastroenterology in about 6 months for further abdominal ultrasound evaluation of gallbladder polyps, and for monitoring of nonalcoholic hepatic steatosis. Referrals were provided in the chart.
Important imaging findings :
MRI abdomen 10/26:
Mild acute interstitial pancreatitis.
No bile duct dilatation or evidence or choledocholithiasis.
Mild hepatomegaly. Fatty infiltration.
Findings suspicious for 3-4 tiny (2 mm) gallbladder polyps.
CT a/p w IV contrast 10/26:
1. Upper abdominal and peripancreatic fat stranding suspicious for acute pancreatitis. No fluid collections appreciated. Correlation with lipase recommended.
2. Hepatic steatosis.
3. No radiopaque gallstones. No urinary tract calculi or hydronephrosis. Unremarkable appendix.
Procedure findings : N/A
Discharge Plan
-
Patient Disposition: Home (Routine Discharge)
Discharge Diagnosis/Procedures: acute pancreatitis, idiopathic
Condition: Good
Diet: Low Fat
Activity: No restrictions
Driving Restrictions: As prior to admission
Bathing Restrictions: None
Referrals:
Sultana Gonzalez MD [Active, Gastroenterology] - 05/01/26
Referral Note: Recommend 6mo follow-up for abd US with elastography to follow up on GB polyps and fatty liver
Herbert Solorzano PA-C [Family Provider] - in one to two weeks
Additional Discharge Medication Instructions: Please take extra strength tylenol as needed for pain. Please eat a low-fat diet for the next 1-2 weeks. Alcohol intake may trigger future pancreatitis episodes.
Please make an appointment with Dr. Gonzalez (GI doctor) in ~6 months for another imaging study to follow-up on your gallbladder polyps & hepatosteatosis.
Please follow up with your primary care doctor in 1-2 weeks.
Prescriptions:
Continued
fluticasone propion-salmeterol [Advair Diskus] 250-50 mcg/dose Blister With Device
1 inh INHALATION R BID
therapeutic multivitamin Tablet
1 tab PO DAILY
cefuroxime axetil 500 mg tablet
500 mg PO BID
Patient Comments:
10/26/2025, filled on 10/20/2025 and pt. instructed to take 1 tablet BID for 21 days.
Creatine 5 mg tablet
5 mg PO DAILY
Patient Comments:
10/26/2025, chewable tablet.
magnesium
1 tab PO DAILY
Discontinued
methylprednisolone 4 mg Tablets,Dose Pack
0 mg PO PER PKG DIR
Patient Comments:
10/26/2025, filled on 10/20/2025 for 6-day course.
Discharge Orders:
Discharge Patient (As Directed); Ordered 10/28/25
Ordered By: Pastora Woodall
Discharge Date and Time
Discharge Date/Time: 10/28/25 12:39
Print Language: CZECH

Documented by User: Jace Barfield MD 10/28/25 13:11
Discharge Summary
Discharge Data
Date of Admission: 10/26/25
Date of Discharge: 10/28/25
Discharge Plan
-
Patient Disposition: Home (Routine Discharge)
Discharge Diagnosis/Procedures: acute pancreatitis, idiopathic
Condition: Good
Diet: Low Fat
Activity: No restrictions
Driving Restrictions: As prior to admission
Bathing Restrictions: None
Referrals:
Sultana Gonzalez MD [Active, Gastroenterology] - 05/01/26
Referral Note: Recommend 6mo follow-up for abd US with elastography to follow up on GB polyps and fatty liver
Herbert Solorzano PA-C [Family Provider] - in one to two weeks
Additional Discharge Medication Instructions: Please take extra strength tylenol as needed for pain. Please eat a low-fat diet for the next 1-2 weeks. Alcohol intake may trigger future pancreatitis episodes.
Please make an appointment with Dr. Gonzalez (GI doctor) in ~6 months for another imaging study to follow-up on your gallbladder polyps & hepatosteatosis.
Please follow up with your primary care doctor in 1-2 weeks.
Prescriptions:
Continued
fluticasone propion-salmeterol [Advair Diskus] 250-50 mcg/dose Blister With Device
1 inh INHALATION R BID
therapeutic multivitamin Tablet
1 tab PO DAILY
cefuroxime axetil 500 mg tablet
500 mg PO BID
Patient Comments:
10/26/2025, filled on 10/20/2025 and pt. instructed to take 1 tablet BID for 21 days.
Creatine 5 mg tablet
5 mg PO DAILY
Patient Comments:
10/26/2025, chewable tablet.
magnesium
1 tab PO DAILY
Discontinued
methylprednisolone 4 mg Tablets,Dose Pack
0 mg PO PER PKG DIR
Patient Comments:
10/26/2025, filled on 10/20/2025 for 6-day course.
Discharge Orders:
Discharge Patient (As Directed); Ordered 10/28/25
Ordered By: Pastora Woodall
Discharge Date and Time
Discharge Date/Time: 10/28/25 12:39
Print Language: CZECH
[2025-10-28 12:11] VITALS: BP 142/90
--- NOTE | 2025-10-28 12:17 | CM ---
Patient seen at bedside on . patient for discharge home with , no needs anticipated at this time. CM will continue to follow for discharge planning needs.
Plan; home with no needs.
== END 2025-10-28 12:39 | disposition home or self-care (01) | DRG 440 ==
LOC: 2 NORTH 13:20
PROVIDERS: Student in an Organized Health Care Education/Training Program; ADMITTING PHYSICIAN Hospitalist; CONSULT PHYSICIAN Internal Medicine Gastroenterology; EMERGENCY PHYSICIAN Emergency Medicine; FAMILY PHYSICIAN Physician Assistant Medical
DX: K85.00 Idiopathic acute pancreatitis without necrosis or infection (principal); E66.9 Obesity, unspecified; Z68.33 Body mass index [BMI] 33.0-33.9, adult; J01.90 Acute sinusitis, unspecified; J45.909 Unspecified asthma, uncomplicated; K76.0 Fatty (change of) liver, not elsewhere classified; K82.4 Cholesterolosis of gallbladder; B35.3 Tinea pedis; Z79.899 Other long term (current) drug therapy
CPT/HCPCS: 74177; 74183; 80053; 80061; 81003; 82787; 83690; 85025; 93005; 94640; 96361; 96374; 96375; 96376; 99285; A9575; A9585; Q9967